=== PATIENT | male | born 1990 ===

== ENCOUNTER 2025-03-25 11:19 | Outpatient (AMB) | payer MEDICAID, SELFPAY ==
--- NOTE | 2025-03-25 11:37 | A.OFFVIS_ITS ---
Intake Visit Reasons: BPH, urethral stricture Intake Note: New patient presents today for initial visit for BPH, urethral stricture Urology Medication:None Blood Thinner:None Antibiotic Allergies:None HPI Comments Details: 03/25/25--patient presents as a new patient urethral stricture. Urinalysis negative. History of Present Illness The patient is a 34-year-old male presenting with urethral stricture. The issue began in 2022 when the patient was 32 years old and residing in [place], with initial symptoms of difficulty urinating. A procedure was performed in 2022 to address scar tissue in the urethra, but it did not alleviate the symptoms. The patient also reports an enlarged prostate, which was noted during a previous evaluation. A PSA test conducted on 01/28/25 returned a result of 1.0, indicating normal prostate health. A renal ultrasound on 01/27/25 showed unremarkable kidneys, and a bladder scan indicated adequate emptying with some residual urine. Results - PSA test on 01/28/25: 1.0 (normal) - Renal ultrasound on 01/27/25: kidneys unremarkable - Bladder scan: adequate emptying with some residual urine Plan 1. Urethral Stricture - Plan to monitor symptoms and consider cystoscopy in 12 to 14 weeks to evaluate the urinary tract. 2. Enlarged Prostate - Monitor prostate size and symptoms, with a follow-up ultrasound scheduled before the next visit. Review of Systems Const All systems reviewed & are unremarkable except as noted in HPI and below Reports no additional complaints Eyes Reports no additional complaints ENT Reports no additional complaints Card Reports no additional complaints Resp Reports no additional complaints GI Reports no additional complaints Reports as per HPI Musc Reports no additional complaints Skin/Breast Reports system reviewed and no additional complaints, except as documented Neuro Reports no additional complaints Psych Reports no additional complaints Endo Reports no additional complaints Bola/Lymph Reports no additional complaints Aller/Immun Reports no additional complaints Physical Exam Const General: healthy appearing, no acute distress and well developed Orientation/consciousness: patient oriented x3 HEENT Head: Yes normocephalic and Yes atraumatic Eyes Conjunctivae: conjunctivae normal Neck Neck: Yes normal visual inspection Chest Chest palpation & inspection: normal inspection of the chest Resp Effort & Inspection: normal respiratory effort GI Inspection: Yes normal to inspection Palpation (GI): Soft to palpation Neuro General: patient oriented x3 Psych Appearance: grossly normal Affect: normal affect Results AMB Urinalysis, Automated UA Leukoctes 0 Joon/uL Last Edit by Noni Bynum on 03/25/25 17:24 UA Nitrite Negative Last Edit by Noni Bynum on 03/25/25 17:24 UA Urobilinogen 0.2 mg/dL Last Edit by Noni Bynum on 03/25/25 17:24 UA Protein 15 mg/dL Last Edit by Noni Bynum on 03/25/25 17:24 UA pH 6.5 Last Edit by Noni Bynum on 03/25/25 17:24 UA Blood 0 Morris/uL Last Edit by Noni Bynum on 03/25/25 17:24 UA Specific [place] 1.015 Last Edit by Noni Bynum on 03/25/25 17:24 UA Ketone Negative Last Edit by Noni Bynum on 03/25/25 17:24 UA Bilirubin 0 mg/dL Last Edit by Noni Bynum on 03/25/25 17:24 UA Glucose 0 mg/dL Last Edit by Noni Bynum on 03/25/25 17:24 Assessment & Plan Assessment & Plan Orders: Orders AMB Urinalysis Automated Today N39.0 - Urinary tract infection, site not specified Coding
--- OUTSIDE RECORDS SUMMARY | 2025-03-25 14:26 | XMS_ITS | Clinical Summary ---
Author Organization [employer] Address [address] [place] [address] Care Team Providers Care Director [employer] [facility] Name Role Phone Unavailable Primary Care Provider Unavailabl e Social History Tobacco Use Types Packs/Day Years Used Date Smoking Tobacco: Never Assessed Sex and Gender Information Value Date Recorded Sex Assigned at Not on file Legal Sex Male 9:33 PM EDT Gender Identity Not on file Sexual Orientation Not on file Plan of Treatment Health Maintenance Due Date Last Done Comments Depression Screening 1990 Lipid Panel 1990 SDOH Screening 1990 Disability Screening 1990 Alcohol/Substance Use Screening 2002 Tobacco Screening 2002 Family Planning (PISQ) 2005 HPV Vaccines (1 - Male 3-dose series) 2005 Hepatitis C Screening 2008 Hepatitis B Vaccines (2 of 2 - CpG 2-dose series) 06/08/2020 05/11/2020 COVID-19 Vaccine ( season) 2025 Influenza Vaccine (#1) 2025 05/11/2020 DTaP/Tdap/Td Vaccines (8 - Td or Tdap) 06/18/2032 06/18/2022, 05/11/2020, 07/22/2017, Additional history exists Zoster Vaccines (1 of 2) 2040 RSV Patients and Patients Aged 60 years or older (1 - 1-dose 75+ series) 2065 IPV Vaccines Completed 05/25/2002, 12/02, 03/20/1996 HIV Screening Completed 01/03/2024, 01/03/2024 HIB Vaccines Aged Out No longer eligi ble based on patient's age to complete this topic Hepatitis A Vaccines Aged Out No long er eligible based on patient's age to complete this topic Meningococcal B Vaccine Aged Out No l onger eligible based on patient's age to complete this topic Meningococcal Vaccine Aged Out No mariano aida eligible based on patient's age to complete this topic Pneumococcal Vaccine: Pediatrics (0 to 5 Years) and At-Risk Patients (6 to 49) Years Aged Out No longer eligible based on patient's age to complete this topic RSV under 20 months Aged Out No longe r eligible based on patient's age to complete this topic Rotavirus Vaccines Aged Out No longer eligible based on patient's age to complete this topic
--- OUTSIDE RECORDS SUMMARY | 2025-03-25 14:26 | XMS_ITS | Clinical Summary ---
Author Organization [facility] Address [address] [place] [address] Care Team Providers Care Play Back Operator Name Role Phone Kacie Villegas [facility] Primary Care Provider [phone] Source Comments PLEASE NOTE, if this patient is a minor, it may be UNLAWFUL to discuss sensitive information that is contained in these records (such as FAMILY PLANNING, MENTAL HEALTH or SUBSTANCE ABUSE) with the minor patient's parent or other person without the patient's specific authorization.[facility] Allergies No known active allergies Medications miscellaneous medical supply miscIndications: Acute right-sided low back pain with right-sided sciatica Order lumbar back brace. Daily use. Dx:M54.41. Need: 1 year. Needs Panamanian int. 1 Each 0 Active fluticasone (FLONASE) 50 mcg/actuation nasal sprayIndications :Upper respiratory tract infection, unspecified type Place 1 [place] in both nostrils once daily 16 g 4 Active methocarbamoL (ROBAXIN) 750 mg tabletIndication s:Acute right-sided low back pain without sciatica,Chronic right-sided low back pain without sciatica Take 1 Tablet by mouth every evening 15 Tablet 4 Active naproxen (NAPROSYN) 500 mg tabletIndication s:Acute right-sided low back pain without sciatica,Chronic right-sided low back pain without sciatica Take 1 Tablet by mouth 2 (two) times daily with a meal 180 Tablet 4 Active Active Problems Problem Noted Date Diagnosed Date Stricture of male urethra 01/06/2024 Class 1 obesity due to exces s calories without serious comorbidity with body mass index (BMI) of 30.0 to 30.9 in adult 07/15/2023 Benign prostatic hyperplasia with lower urinary tract symptoms: sees urologist 12/21/2022 Prostatitis Overview (07/25/2022): 06/12/2022: [place]; US of renal/bladdder: Findings: The right kidney measures 10.0 cm in greatest length. The left kidney measures 11.7 cm in greatest length. 1.9 cm rounded right upper pole parenchymal cyst with mild amount of intracystic low level echoes. Normal parenchymal echogenicity, otherwise. No abnormal solid mass, parenchymal thickness, hydronephrosis, or perinephric fluid collection. The distended urinary bladder is without abnormal filling defect, wall thickening, or perivesicle free fluid. Pre void volume is 951 cc. Post void volume is 296 cc. Urinary bladder wall thickness is 4 mm. Distal left ureteral jets are seen, but not on the right side. Prostate size is 48.6 mL demonstrating posterior peripheral zone prostate body parenchymal calcification. Adjacent soft tissues are unremarkable. Impression: 1. Small right upper pole renal parenchymal Bosniak 2 complex cyst. 2. Normal left kidney. 3. Large postvoid urinary bladder residual volume. 4. Moderate prostate enlargement containing peripheral zone calcification Resolved Problems Problem Noted Date Diagnosed Date Resolved Date HIV antibody positive ([facility]) 07/201907/30/2019 01/26/2025 Overview (08/09/2020): HIV Differentiation negative, HIV viral load undetectable. Encounters Date Type Department Care Team Description 02/04/2025 Results Follow-Up [address] [phone] Kacie Villegas FNP 01/26/2025 10:40 AM EDT Telemedicine Visit [address] [phone] Kacie Villegas FNP Vasylyshyn, Oksana from Last 3 Months Immunizations Immunization Administration Dates Next Due DTAP (DAPTACEL),5 PERTUSSIS ANTIGENS ,01/20/1991,1990,1990 Flu, Preservative Free 05/11/2020 Hep B,adult,adjuvanted (HEPLISAV) 05/11/2020 Measles, Live 09/18/1996,12/11/1991 Mumps, Live 03/01/2005,11/24/1992 OPV, Trivalent 05/25/2002,12/23/1997,03/20/1996 TDAP 06/18/2022,05/11/2020 Td (adult) unspecified 07/22/2017,2007,07/23/2003,2000 Td (adult),2 Lf tetanus toxo id (TDVAX), preservative free 07/22/2017,07/30/2007,07/23/2003,2000 Family History Medical History Relation Name Comments No Known Problems Father No Known Problems Mother Relation Name Status Comments Father Mother Social History Tobacco Use Types Packs/Day Years Used Date Smoking Tobacco: Never Passive Smoke Exposure: Never Smokeless Tobacco: Never Tobacco Cessation:Counseling Given: Not Answered Alcohol Use Standard Drinks/Week Comments Never 0 (1 standard drink = 0.6 oz pur e alcohol) Social Connections Answer Date Recorded Connectedness 1 07/09/2023 Financial Resource Strain Answer Date R ecorded Financial Resource Strain 1 2023 Stress Answer Date Recorded Stress 1 07/09/2023 Physical Activity Answer Date Recorded Physical Activity 0 07/30/2019 Food Insecurity Answer Date Recorded Food 1 07/09/2023 Transportation Needs Answer Date Record ed Transportation 1 07/09/2023 Housing Stability Answer Date Recorded Housing 1 07/09/2023 Safety and Environment Answer Date Rakesh rded Safety 1 07/09/2023 Utilities Answer Date Recorded Utilities 1 07/09/2023 Employment Answer Date Recorded Stress 0 06/08/2022 Sex and Gender Information Value Date Recorded Sex Assigned at Male 07/30/2019 6:56 PM PST Legal Sex Male 1:20 PM PST Gender Identity Male 07/30/2019 6:56 PM PST Sexual Orientation Straight 07/30/2019 6: 56 PM PST Last Filed Vital Signs Vital Sign Reading Time Taken Comments Blood Pressure 160/104 02/21/2024 4:33 PM EDT Pulse 109 02/21/2024 4:33 PM EDT Temperature 37.2 C (98.9 F) 02/21/2024 4:33 PM EDT Respiratory Rate 14 02/21/2024 4:33 PM EDT Oxygen Saturation 98% 01/03/2024 3:05 PM EDT Inhaled Oxygen Concentration - - Weight 96.2 kg (212 lb) 02/21/2024 4:33 PM EDT Height 177.8 cm (5' 10 ) 01/03/2024 3:05 PM EDT Body Mass Index 30.42 01/03/2024 3:05 PM EDT Plan of Treatment Health Maintenance Due Date Last Done Comments Anxiety Screening 1990 Imm-HPV (1 - 3-dose SCDM series) 2017 Imm-Hepatitis B (2 of 2 - Cp G 2-dose series) 06/08/2020 05/11/2020 Alcohol and Drug Screen 06/03/2024 07/09/2023, 06/08 Depression Annual Screen 06/03/2024 07/09/2023 Annual Wellness (Adult): Indicated (All Coverage) 01/02/2025 01/03/2024, 01/25/2020 Lipid Screening 01/02/2025 01/03/2024 [id number] ( season) 2025 Imm-Influenza (#1) 2025 05/11/2020 Hypertension Screening (#1) 02/20/2025 Tobacco Screening 01/26/2026 01/26/2025 Imm-DTaP/Tdap/Td (8 - Td or Tdap) 06/18/2032 06/18/2022, 05/11/2020, 07/22/2017, Additional history exists HIV Screening Completed 01/03/2024, 07/2019, 07/30/2019, Additional history exists Hepatitis C Screening Completed 01/03/2024, 020 Syphilis Screening Discontinued 01/03/2024, 08/03/2019 Procedures Procedure Name Priority Date/Time Associated Diagnosis Comments URINE CULTURE W ID & SENS Routine 01/27/2025 2:25 PM EDT PROSTATE SPECIFIC ANTIGEN, FREE AND TOTAL Routine 01/27/2025 2:25 PM EDT RFLX - REFLEXIVE URINE CULTURE Routine 01/27/2025 2:25 PM EDT C TRACHOMATIS/N GONORRHOEAE RNA,TMA Routine 01/27/2025 2:25 PM EDT Benign prostatic hyperplasia with urinary frequency Other stricture of urethra in male URINALYSIS, COMPLETE W/REFLEX TO CULTURE Routine 01/27/2025 2:25 PM EDT Benign prostatic hyperplasia with urinary frequency Other stricture of urethra in male COMPREHENSIVE METABOLIC PANEL Routine 01/27/2025 2:25 PM EDT Benign prostatic hyperplasia with urinary frequency Other stricture of urethra in male US RENAL (KIDNEYS) & BLADDER COMPLETE Routine 01/27/2025 3:00 AM EDT Benign prostatic hyperplasia with urinary frequency Other stricture of urethra in male HIV 1/2 AG & AB W/RFLX (4TH GEN) Routine 01/03/2024 4:13 PM EDT HIV antibody positive ([facility]) 07/2019 SYPHILIS ANTIBODY CASCADING REFLEX Routine 01/03/2024 4:13 PM EDT HIV antibody positive ([facility]) 07/2019 HEPATITIS C AB W/RFLX HCV RNA, QT, RT PCR Routine 01/03/2024 4:13 PM EDT HIV antibody positive ([facility]) 07/2019 LIPID PANEL Routine 01/03/2024 4:13 PM EDT HIV antibody positive ([facility]) 07/2019 from Last 3 Months or Most Recently Relevant to Health Maintenance Results * CHLAMYDIA/NEISSERIA GONORRHOEAE RNA, TMA, UROGENITAL Urine Urine Routine (01/27/2025 2:25 PM EDT) CHLAMYDIA TRACHOMATIS RNA, TMA NOT DETECTED NOT DETECTED 01/28/2025 5:49 PM EDT [facility] NEISSERIA GONORRHOEAE RNA, TMA NOT DETECTED NOT DETECTED 01/28/2025 5:49 PM EDT [facility] Urine Urine specimen / Unknown 01/27/2025 2:25 PM EDT 01/28/2025 9:40 AM EDT Narrative [facility] - 01/28/2025 6:04 PM EDT The analytical performance characteristics of this assay, when used to test SurePath(TM) specimens have been determined by [employer]. The modifications have not been cleared or approved by the FDA. This assay has been validated pursuant to the CLIA regulations and is used for clinical purposes. . For additional information, please refer to https://education.NewCondosOnline/faq/OWE771 (This link is being provided for information/ educational purposes only.) . Sequenomnacho Villegas [facility] LAB BODY FLUIDS AND STOOLS AMB ULATORY Final Result Performing Organization Address [facility] Co de Phone Number [facility] [address] [address], [employer] [address] [address] * URINE CULTURE W ID & SENS Routine (01/27/2025 2:25 PM EDT) Micro Number [id number] 01/29/2025 8:25 AM EDT [facility] SPECIMEN QUALITY Adequate 01/29/2025 8:25 AM EDT [facility] SOURCE: URINE 01/29/2025 8:25 AM EDT [facility] STATUS: FINAL 01/29/2025 8:25 AM EDT [facility] RESULT No Growth 01/29/2025 8:25 AM EDT [facility] 01/27/2025 2:25 PM EDT 01/28/2025 4:24 AM EDT [employer]acho Villegas [facility] - MICROBIOLOGY AMBULATORY Final Result Performing Organization Address [facility] Co de Phone Number [facility] [address] [address], [employer] [address] [address] * (ABNORMAL) URINALYSIS, COMPLETE W/REFLEX TO CULTURE Urine Routine (01/27/2025 2:25 PM EDT) COLOR YELLOW YELLOW 01/28/2025 3:04 AM EDT [facility] APPEARANCE CLEAR CLEAR 01/28/2025 3:04 AM [facility] SPECIFIC GRAVITY 1.009 1.001 - 1.035 01/28/2025 3:04 AM [facility] URINE PH 7.5 5.0 - 8.0 01/28/2025 3:04 AM EDT [facility] GLUCOSE NEGATIVE NEGATIVE 01/28/2025 3:04 AM EDT [facility] BILIRUBIN NEGATIVE NEGATIVE 01/28/2025 3:04 AM EDT [facility] KETONES NEGATIVE NEGATIVE 01/28/2025 3:04 AM EDT [facility] OCCULT BLOOD NEGATIVE NEGATIVE 01/28/2025 3:04 AM [facility] URINE PROTEIN NEGATIVE NEGATIVE 01/28/2025 3:04 AM [facility] NITRITE NEGATIVE NEGATIVE 01/28/2025 3:04 AM [facility] LEUKOCYTE ESTERASE TRACE(A) NEGATIVE 01/28/2025 3:04 AM [facility] URINE LEUKOCYTES NONE SEEN 0 - 5 /HPF 01/28/2025 3:04 AM [facility] RBC NONE SEEN 0 - 2 /HPF 01/28/2025 3:04 AM [employer] [facility] SQUAMOUS EPITHELIAL CELLS NONE SEEN < OR = 5 /HPF 01/28/2025 3:04 AM [employer] [facility] BACTERIA NONE SEEN NONE SEEN /HPF 01/28/2025 3:04 AM [employer] [facility] HYALINE CAST NONE SEEN NONE SEEN /LPF 01/28/2025 3:04 AM [employer] SEE NOTE SEE NOTE 01/28/2025 3:04 AM [employer] [facility] Urine Urine specimen / Unknown 01/27/2025 2:25 PM EDT 01/28/2025 2:28 AM EDT Narrative [facility] - 01/28/2025 3:04 AM EDT This urine was analyzed for the presence of WBC, RBC, bacteria, casts, and other formed elements. Only those elements seen were reported. . . Kacie Villegas [facility] URINE AMBULATORY Final Res ult [facility] [address] [address], [facility] [address] [address] * RFLX - REFLEXIVE URINE CULTURE Routine (01/27/2025 2:25 PM EDT) REFLEXIVE URINE CULTURE SEE NOTE 01/28/2025 3:04 AM EDT [facility] 01/27/2025 2:25 PM EDT 01/28/2025 2:28 AM EDT Narrative [facility] - 01/28/2025 3:04 AM EDT CULTURE INDICATED - RESULTS TO FOLLOW Kacie Villegas [facility] - MICROBIOLOGY AMBULATORY Final Result [facility] [address] [address], [facility] [address] [address] * (ABNORMAL) PROSTATE SPECIFIC ANTIGEN, FREE AND TOTAL Routine (01/27/2025 2:25 PM EDT) TOTAL PSA 1.0 < OR = 4.0 ng/mL 01/28/2025 10:57 AM EDT [facility] FREE PSA 0.2 ng/mL 01/28/2025 10:57 AM EDT [facility] % FREE PSA 20(L) >25 % (calc) 01/28/2025 10:57 AM EDT [facility] 01/27/2025 2:25 PM EDT 01/28/2025 2:09 AM EDT Narrative [facility] - 01/28/2025 11:25 AM EDT . PSA(ng/mL) Free PSA(%) Estimated(x) Probability of Cancer(as%) 0-2.5 (*) Approx. 1 2.6-4.0(1) 0-27(2) 24(3) 4.1-10(4) 0-10 56 11-15 28 16-20 20 21-25 16 >or =26 8 >10(+) N/A >50 . References:(1)Duane et al.:Urology 60: 469-474 (2002) (2)Duane et al.:J.Urol 168: 922-925 (2001) Free PSA(%) Sensitivity(%) Specificity(%) < or = 25 85 19 < or = 30 93 9 (3)Jonnathanona et al.:CHAS 277: 1800-9995 (1996) (4)Catalona et al.:CHAS 279: 6383-0502 (1997) . (x)These estimates vary with age, ethnicity, family history and YARI results. (*)The diagnostic usefulness of % Free PSA has not been established in patients with total PSA below 2.6 ng/mL (+)In men with PSA above 10 ng/mL, prostate cancer risk is determined by total PSA alone. . The Total PSA value from this assay system is standardized against the equimolar PSA standard. The test result will be approximately 20% higher when compared to the WHO-standardized Total PSA (Siemens assay). Comparison of serial PSA results should be interpreted with this fact in mind. . PSA was performed using the Marti Julio Immunoassay method. Values obtained from different assay methods cannot be used interchangeably. PSA levels, regardless of value, should not be interpreted as absolute evidence of the presence or absence of disease. . Kacie Villegas [facility] - BLOOD DRAW Final Result [facility] [address] [address], [facility] [address] [address] * (ABNORMAL) COMPREHENSIVE METABOLIC PANEL Routine (01/27/2025 2:25 PM EDT) Pathologist [facility] GLUCOSE 119(H) 65 - 99 mg/dL 01/28/2025 5:48 AM EDT [employer] [facility] UREA NITROGEN (BUN) 11 7 - 25 mg/dL 01/28/2025 5:48 AM EDT [employer] [facility] CREATININE (blood) 0.98 0.60 - 1.26 mg/dL 01/28/2025 5:48 AM EDT [employer] [facility] EGFR 104 > OR = 60 mL/min/1. 73m2 01/28/2025 5:48 AM EDT [employer] BUN/CREATININE RATIO SEE NOTE: 6 - 22 (calc) 01/28/2025 5:48 AM [employer] SODIUM 139 135 - 146 mmol/L 01/28/2025 5:48 AM [employer] [facility] POTASSIUM 4.2 3.5 - 5.3 mmol/L 01/28/2025 5:48 AM [employer] [facility] CHLORIDE 105 98 - 110 mmol/L 01/28/2025 5:48 AM [employer] [facility] CARBON DIOXIDE 24 20 - 32 mmol/L 01/28/2025 5:48 AM [employer] [facility] CALCIUM 9.4 8.6 - 10.3 mg/dL 01/28/2025 5:48 AM [employer] [facility] PROTEIN, TOTAL 7.0 6.1 - 8.1 g/dL 01/28/2025 5:48 AM [employer] [facility] ALBUMIN 4.7 3.6 - 5.1 g/dL 01/28/2025 5:48 AM [employer] [facility] GLOBULIN 2.3 1.9 - 3.7 g/dL (calc) 01/28/2025 5:48 AM [employer] [facility] ALBUMIN/GLOBULI N RATIO 2.0 1.0 - 2.5 (calc) 01/28/2025 5:48 AM [employer] [facility] BILIRUBIN, TOTAL 0.5 0.2 - 1.2 mg/dL 01/28/2025 5:48 AM [employer] ALKALINE PHOSPHATASE 70 36 - 130 U/L 01/28/2025 5:48 AM [employer] AST 21 10 - 40 U/L 01/28/2025 5:48 AM [employer] [facility] ALT 30 9 - 46 U/L 01/28/2025 5:48 AM [employer] Blood Blood / Unknown 01/27/2025 2 :25 PM EDT 01/28/2025 4:24 AM EDT [employer] [facility] - 01/28/2025 5:48 AM EDT . Fasting reference interval . For someone without known diabetes, a glucose value between 100 and 125 mg/dL is consistent with prediabetes and should be confirmed with a follow-up test. . Not Reported: BUN and Creatinine are within reference range. . Kacie Villegas [facility] - BLOOD DRAW Final Result [facility] [address] [address], [facility] [address] [place] [address] * US RENAL (KIDNEYS) & BLADDER COMPLETE (01/27/2025 3:00 AM EDT) 01/27/2025 3:00 AM EDT Impressions [facility] - 01/29/2025 10:51 AM EDT IMPRESSION: Morphologically unremarkable kidneys without evidence of hydronephrosis. Enlarged prostate gland. Bladder anatomy is not evaluated in detail. No bladder masses or stones are identified. Postvoid residual volume is 406 ml. Postvoid residual is 72% based upon the prevoid volume of 559 ml. Adults and Elderly *Less than 100 ml PVR is considered normal. *Up to 200 ml PVR may be acceptable. *Over 200 ml PVR indicates inadequate emptying. *Over 300 ml is suggestive of urinary retention. *Over 400 ml is considered urinary retention. Children *Over20 ml PVR is considered abnormal but varies with age. Urinary Retention *A PVR over 500 ml is widely considered abnormal and generally diagnostic of urinary retention. In addition, itmay be highly predictive of cauda equina syndrome if associated with other neurological findings. . Beata Pascual MD Signed by Beata Pascual MD Read by: BEATA PASCUAL MD Reviewed and Electronically Signed by: BEAAT PASCUAL MD [facility] - 01/29/2025 10:51 AM EDT Original Report PROCEDURE: US RENAL INDICATION: Benign prostatic hyperplasia with lower urinary tract symptoms, dysuria. TECHNIQUE: Ultrasound of the Kidneys and Bladder. COMPARISON: None available. FINDINGS: The right kidney measures 10.9 cm in length. Renal cortical echotexture is normal. There is no hydronephrosis. There are no stones. There are no cysts. The left kidney measures 11.8 cm in length. Renal cortical echotexture is normal. There is no hydronephrosis. There are no stones. There are no cysts. The urinary bladder is anechoic. The distended bladder shows no evidence of wall thickening. The distended bladder volume is 559 ml. The postvoid residual volume is 406 ml. Bilateral ureteral jets are not visualized. Prostate volume is 35 ml. Procedure Note Default, [facility] Provider - 01/29/2025 Original Report PROCEDURE: US RENAL INDICATION: Benign prostatic hyperplasia with lower urinary tract symptoms, dysuria. TECHNIQUE: Ultrasound of the Kidneys and Bladder. COMPARISON: None available. FINDINGS: The right kidney measures 10.9 cm in length. Renal cortical echotexture is normal. There is no hydronephrosis. There are no stones. There are no cysts. The left kidney measures 11.8 cm in length. Renal cortical echotexture is normal. There is no hydronephrosis. There are no stones. There are no cysts. The urinary bladder is anechoic. The distended bladder shows no evidence of wall thickening. The distended bladder volume is 559 ml. The postvoid residual volume is 406 ml. Bilateral ureteral jets are not visualized. Prostate volume is 35 ml. IMPRESSION: IMPRESSION: Morphologically unremarkable kidneys without evidence of hydronephrosis. Enlarged prostate gland. Bladder anatomy is not evaluated in detail. No bladder masses or stones are identified. Postvoid residual volume is 406 ml. Postvoid residual is 72% based upon the prevoid volume of 559 ml. Adults and Elderly *Less than 100 ml PVR is considered normal. *Up to 200 ml PVR may be acceptable. *Over 200 ml PVR indicates inadequate emptying. *Over 300 ml is suggestive of urinary retention. *Over 400 ml is considered urinary retention. Children *Over20 ml PVR is considered abnormal but varies with age. Urinary Retention *A PVR over 500 ml is widely considered abnormal and generally diagnostic of urinary retention. In addition, itmay be highly predictive of cauda equina syndrome if associated with other neurological findings. . Beata Pascual MD Signed by Beata Pascual MD Read by: BEATA PASCUAL MD Reviewed and Electronically Signed by: BEATA PASCUAL MD Kacie Villegas [facility] ULTRASOUND Edited Result - Final [facility] Corporate Office [address], [address] [place] [address], [place] [phone] * HEPATITIS C AB W/RFLX HCV RNA, QT, RT PCR (01/03/2024 4:13 PM EDT) HEPATITIS C ANTIBODY NON-REACT TREY NON-REACT TREY [facility] Comment: HCV antibody was non-reactive. There is no laboratory evidence of HCV infection. In most cases, no further action is required. However, if recent HCV exposure is suspected, a test for HCV RNA (test code 88115) is suggested. For additional information please refer to http://education.NewCondosOnline/faq/UPC96p3 (This link is being provided for informational/ educational purposes only.) Blood Blood / Unknown 01/03/2024 4 :13 PM EDT 01/03/2024 4:14 PM EDT Narrative [facility] - 01/06/2024 3:33 PM EDT FASTING:YES Manjeet Codi [facility] - BLOOD DRAW Edited R esult - Final [facility] [address] [address], [facility] [address] [address] * SYPHILIS ANTIBODY CASCADING REFLEX (01/03/2024 4:13 PM EDT) T. PALLIDUM AB, EIA NEGATIVE NEGATIVE [facility] Comment: No antibodies to T. pallidum (the agent causing syphilis) were detected in the specimen. This result, however, does not exclude very recent T. pallidum infection; testing of a second specimen, collected 2-4 weeks after this specimen, is recommended if the index of suspicion for recent infection is high. Blood Blood / Unknown 01/03/2024 4 :13 PM EDT 01/03/2024 4:14 PM EDT Narrative [facility] - 01/06/2024 3:33 PM EDT FASTING:YES Manjeet Codi [facility] - BLOOD DRAW Final Re sult Performing Organization Address [facility] de Phone Number [facility] [address] [address], [employer] [address] [address] * HIV 1/2 AG & AB W/RFLX (4TH GEN) (01/03/2024 4:13 PM EDT) [facility] HIV AG/AB, 4TH GEN NON-REAC TIVE NON-REAC TIVE [facility] Comment: HIV-1 antigen and HIV-1/HIV-2 antibodies were not detected. There is no laboratory evidence of HIV infection. PLEASE NOTE: This information has been disclosed to you from records whose confidentiality may be protected by state law. If your state requires such protection, then the state law prohibits you from making any further disclosure of the information without the specific written consent of the person to whom it pertains, or as otherwise permitted by law. A general authorization for the release of medical or other information is NOT sufficient for this purpose. For additional information please refer to http://education.bitHound.Firmex/faq/ORY807 (This link is being provided for informational/ educational purposes only.) The performance of this assay has not been clinically validated in patients less than 2 years old. Blood Blood / Unknown 01/03/2024 4 :13 PM EDT 01/03/2024 4:14 PM EDT Narrative [facility] - 01/06/2024 3:33 PM EDT FASTING:YES Manjeet Kincaid [facility] - BLOOD DRAW Final Re sult Performing Organization Address [facility]/ZIP Co de Phone Number [facility] [address] [address], [employer] [address] [address] * (ABNORMAL) LIPID PANEL (01/03/2024 4:13 PM EDT) CHOLESTEROL, TOTAL 224(H) <200 mg/dL [facility] HDL CHOLESTEROL 42 > OR = 40 mg/dL [facility] TRIGLYCERIDES 190(H) <150 mg/dL [facility] LDL-CHOLESTEROL 149(H) 99 mg/dL (calc) [facility] Comment: Reference range: <100 Desirable range <100 mg/dL for primary prevention; <70 mg/dL for patients with CHD or diabetic patients with > or = 2 CHD risk factors. LDL-C is now calculated using the Amalia calculation, which is a validated novel method providing better accuracy than the Friedewald equation in the estimation of LDL-C. Omari SS et al. CHAS. 2013;310(19): 9236-7225 (http://education.ividence/faq/ZXW265) CHOL/HDLC RATIO 5.3(H) <5.0 (calc) [facility] NON-HDL CHOLESTEROL 182(H) <130 mg/dL (calc) [facility] Comment: For patients with diabetes plus 1 major ASCVD risk factor, treating to a non-HDL-C goal of <100 mg/dL (LDL-C of <70 mg/dL) is considered a therapeutic option. Blood Blood / Unknown 01/03/2024 4 :13 PM EDT 01/03/2024 4:14 PM EDT Narrative [facility] - 01/06/2024 3:33 PM EDT FASTING:YES [facility] - BLOOD DRAW Final Re sult [facility] [address] [id number], [employer] [facility] [address] [place] [id number] from Last 3 Months or Most Recently Relevant to Health Maintenance Insurance [address] [employer] Care Teams Play Back Operator Relationship Specialty Start Date End Date Kacie Villegas FNP [address] [place] [id number] PCP - General Internal Medicine 01/13/20
== END 2025-03-25 13:05 | disposition home or self-care (01) ==
PROVIDERS: PCP Physician Assistant; Visit Provider Urology
DX: N39.0 Urinary tract infection, site not specified (principal)

== ENCOUNTER → 2025-03-25 11:19 | Outpatient (BNVA) | payer MEDICAID, SELFPAY | PROVIDERS: PCP Physician Assistant; Visit Provider Urology | DX: N40.0 Benign prostatic hyperplasia without lower urinary tract symptoms (principal); N35.919 Unspecified urethral stricture, male, unspecified site; N39.8 Other specified disorders of urinary system | CPT/HCPCS: 81003; 99202 ==